=== PATIENT | female | born 1970 | race Caucasian/White ===

== ENCOUNTER 2018-03-11 10:26 | Emergency (ER) | payer BC ==
[2018-03-11 10:39] VITALS: RESP 18
[2018-03-11] MEDS ORDERED: diphenhydrAMINE 50 MG/ML 1 ML VIAL IVP STA (10:52)
[2018-03-11] MEDS ORDERED: METOCLOPRAMIDE 5 MG/ML 2 ML VIAL IVP STA (10:52)
[2018-03-11] MEDS ORDERED: SODIUM CHLORIDE 0.9% 1,000 ML IV STA (10:52)
[2018-03-11] MEDS ORDERED: ORPHENADRINE 30 MG/ML 2 ML VIAL IVP STA (10:53)
--- NOTE | 2018-03-11 10:57 | ED ---
Headache HPI - General Chief Complaint: Headache Stated Complaint: Migraine Time Seen by Provider: 03/11/18 10:46 Source: patient, RN notes reviewed Mode of arrival: wheelchair Limitations: no limitations - History of Present Illness Initial Comments: 47-year-old female presented emergency Department chief complaint of leg. She states she's had a constant headache for last 8 days and that she's been exhibiting symptoms of dizziness feeling lightheaded numbness and tingling on the left side. She states that she had all the symptoms when she saw her neurologist last week and she had an MRI, MRA ordered but states that she has not had it completed at this time. Patient states that the headache is getting worse and unalleviated with the nortriptyline that she was started on. Patient states that her neurologist told her she probably has an aneurysm though she has had no imaging that supported this. Patient states she's not had any recent CT. Denies any fall, head trauma. She states the headache is more diffuse in nature she does have nausea vomiting to photosensitivity. She's also had some blurred vision in which she had the symptoms when seen her neurologist. Patient reports no chest pain or shortness breath no fever or chills. - Related Data Home Medications Medication Instructions Recorded Confirmed Aspirin/Acetaminophen/Caffeine 3 tab PO ONCE PRN 03/11/18 03/11/18 [Excedrin Migraine Caplet] Estradiol [Estradiol 0.1 MG Patch] 1 patch TRANSDERM PLUMMER 03/11/18 03/11/18 HYDROcodone/APAP 7.5-325MG [Frazer 1 tab PO Q6H PRN 03/11/18 03/11/18 7.5-325] Nortriptyline [Pamelor] 20 mg PO HS 03/11/18 03/11/18 buPROPion HCL [Wellbutrin XL] 300 mg PO DAILY 03/11/18 03/11/18 Allergies Allergy/AdvReac Type Severity Reaction Status Date / Time morphine Allergy Rash/Hives Verified 03/11/18 11:24 Review of Systems ROS Statement: Those systems with pertinent positive or pertinent negative responses have been documented in the HPI. ROS Other: All systems not noted in ROS Statement are negative. Past Medical History Additional Past Medical History / Comment(s): Migraines History of Any Multi-Drug Resistant Organisms: None Reported Past Surgical History: No Surgical Hx Reported Past Psychological History: No Psychological Hx Reported Smoking Status: Never smoker Past Alcohol Use History: None Reported Past Drug Use History: None Reported General Exam Limitations: no limitations General appearance: alert, in no apparent distress Head exam: Present: atraumatic, normocephalic, normal inspection Eye exam: Present: normal appearance, PERRL, EOMI. Absent: scleral icterus, conjunctival injection, periorbital swelling ENT exam: Present: normal exam, normal oropharynx, mucous membranes moist, TM's normal bilaterally, normal external ear exam Neck exam: Present: normal inspection, full ROM. Absent: tenderness, meningismus, lymphadenopathy Respiratory exam: Present: normal lung sounds bilaterally. Absent: respiratory distress, wheezes, rales, rhonchi, stridor Cardiovascular Exam: Present: regular rate, normal rhythm, normal heart sounds. Absent: systolic murmur, diastolic murmur, rubs, gallop, clicks Neurological exam: Present: alert, oriented X3, CN II-XII intact, reflexes normal, other (Finger to nose intact bilaterally). Absent: motor sensory deficit Skin exam: Present: warm, dry, intact, normal color. Absent: rash Course Vital Signs 03/11/18 10:38 Temperature 98.2 F Pulse Rate 89 Respiratory 18 Rate Blood Pressure 132/80 O2 Sat by Pulse 99 Oximetry Medical Decision Making - Medical Decision Making 47-year-old female presented Department with chief complaint of headache. Patient is concerned that she had an aneurysm because her neurologist told her that she most likely does based on her symptoms. Patient CT and CTA which was negative for acute abnormality. Patient states she does feel improved after IV medications she will be discharged at this time with follow-up with neurologist return parameters were discussed. Neuro exam was normal. Disposition Clinical Impression: Migraine Disposition: HOME SELF-CARE Condition: Stable Instructions: Acute Headache (ED) Additional Instructions: Please return to the Emergency Department if symptoms worsen or any other concerns. Is patient prescribed a controlled substance at d/c from ED?: No Referrals: Collin Mcneill MD [Primary Care Provider] - 1-2 days Time of Disposition: 12:37
--- NOTE | 2018-03-11 11:26 | CT ---
EXAMINATION TYPE: CT brain wo con DATE OF EXAM: 03/11/2018 COMPARISON: None HISTORY: Migraine CURIEL CT DLP: 945.[address] of the brain was performed. The ventricles, basal cisterns and sulci overlying the cerebral convexities demonstrate a normal appe arance. There is no evidence for intracranial hemorrhage or sulcal effacement. No mass effects are seen. Osseous calvarium is intact. If symptoms persist consider MRI as clinically warranted. IMPRESSION: 1. No acute intracranial process is seen at this time.
[2018-03-11] MEDS ORDERED: RX INFO: IV CONTRAST WAS GIVEN 1 EACH MISC MISCELLANE PRN (11:44)
[2018-03-11] MEDS ORDERED: KETOROLAC 30 MG/ML 1 ML VIAL IVP STA (11:45)
--- NOTE | 2018-03-11 12:17 | CT ---
EXAMINATION TYPE: CT brain w con DATE OF EXAM: 03/11/2018 COMPARISON: 03/11/18 HISTORY: Migraine CT DLP: 1076 mGycm Automated exposure control for dose reduction was used. CONTRAST: CT scan of the head is performed with IV Contrast, patient injected with 100 mL of Isovue 300. FINDINGS: There is no abnormal enhancing mass or midline shift identified. The ventricles and sulci are within normal limits in size. The globes are intact and the visualized sinuses are clear. IMPRESSION: Negative contrast enhanced head CT exam.
[2018-03-11 13:16] VITALS: BP 120/63; PULSE 92; TEMP 97.7
== END 2018-03-11 13:13 | disposition home or self-care (01) ==
LOC: EC 10:26
DX: G43.909 Migraine, unspecified, not intractable, without status migrainosus (principal); Z79.899 Other long term (current) drug therapy; Z88.5 Allergy status to narcotic agent
CPT/HCPCS: 70450; 70460; 99284; 96374; 96375 ×3; 96361; J1200; J2360; J2765; J1885; Q9967

== ENCOUNTER 2022-06-14 07:40 | Day surgery (SDC) | payer BC ==
[2022-06-12 16:35] VITALS: BMI 38.4
[~2022-06-14 07:40] MED LIST: ALPRAZolam 0.25 MG TAB PO PRN; ALPRAZolam 0.5 MG TAB PO PRN; ASPIRIN 325 MG TAB PO STA; ATORVASTATIN 80 MG TAB PO STA; HEPARIN SODIUM,PORCINE 10,000 UNIT in SODIUM CHLORIDE 0.9% 1,000 ML IRRIGATION PRN; HEPARIN SODIUM,PORCINE 2,500 UNIT in SODIUM CHLORIDE 0.9% 250 ML IRRIGATION PRN; NITROGLYCERIN SL TABS 0.4 MG TAB SUBLINGUAL PRN; SODIUM CHLORIDE 0.9% 1,000 ML in EMPTY BAG 1 BAG IV SCH
[2022-06-14] MEDS ORDERED: SODIUM CHLORIDE 0.9% 1,000 ML IV ONE (07:54)
[2022-06-14 08:21] VITALS: RESP 16; TEMP 98.3
[2022-06-14] MEDS ORDERED: VERAPAMIL 2.5 MG/ML 2 ML AMP ONE (09:28)
[2022-06-14] MEDS ORDERED: IV FLUID CONTINUATION 1,000 ML IV ONE (09:30)
[2022-06-14] MEDS ORDERED: HEPARIN SODIUM 1,000 UN/ML (10ML VL) ONE (09:38)
[2022-06-14] MEDS ORDERED: fentaNYL (PF) 50 MCG/ML 2 ML AMP ONE (09:38)
[2022-06-14] MEDS: BENZOCAINE SPRAY 1 CAN MUCOUS MEM ONE ×2 (09:38→09:43)
[2022-06-14] MEDS: fentaNYL (PF) 50 MCG/ML 2 ML AMP IV ONE ×2 (09:43→09:45)
[2022-06-14] MEDS ORDERED: MIDAZOLAM 2 MG/2 ML VIAL IV ONE ×2 (09:43→09:45)
--- NOTE | 2022-06-14 10:02 | P.PCN ---
Date of Procedure: 06/14/22 Operative Findings: TRANSESOPHAGEAL ECHOCARDIOGRAM HOT PATCHER: AKBAR YORK MD, RPVI INDICATION: Rule out patent foramen ovale SEDATION: Conscious sedation COMPLICATION: None LEVEL OF SEDATION Moderate with sedation length of 12 minutes PROCEDURE DESCRIPTION: After obtaining an informed consent, the patient was brought to transesophageal echocardiogram room. Pulse oximetry and heart monitors were attached to the patient. The patient throat was sprayed using lidocaine. The patient was turned into left lateral position. After that a bite guard was placed. After an appropriate conscious sedation was initiated, the transesophageal echocardiogram was advanced through a bite guard into the mid esophagus. A 2-D echocardiogram images, color Doppler images, continuous wave images, pulse-wave images, of various cardiac structure were performed. After that the transesophageal echocardiogram probe was advanced into the stomach and fixed to obtain transgastric view was. The probe was brought into the mid esophagus. Inter-atrial septum was interrogated using 2D images, color Doppler images, and then contrast study. After that transesophageal echocardiogram was withdrawn out and upon withdrawing the descending thoracic aorta all the way up to the arch was evaluated. FINDING: The left ventricular dimension and systolic function appeared to be within normal limits. Ejection fraction appears to be in the range of 50-55%. The right ventricle appeared to be of normal size and function. The left atrium and right atrium appeared to be within normal limits for dimension. The left atrial appendage appeared to be free from any thrombus. The interatrial septum appeared to be intact. The aortic valve is trileaflet valve without stenosis or regurgitation. Mitral valve seems to be normal with mild MR. Normal tricuspid valve and pulmonic valve seen. No evidence of pericardial effusion CONCLUSION: 1. Intact interatrial septum with no evidence of PFO or ASD. Intact left atrial abdomen 2. Normal left ventricular dimension and systolic function 3. Normal right ventricular dimension and systolic function 4. Normal intracardiac valves 5. No evidence of pericardial effusion
[2022-06-14] MEDS ORDERED: LIDOCAINE 1% INJ 10MG/ML (30 ML VIAL-PF) SQ ONE (10:05)
[2022-06-14] MEDS ORDERED: VERAPAMIL SYRINGE (5 MG/10 ML) INTRAARTER ONE (10:08)
[2022-06-14] MEDS ORDERED: HEPARIN SODIUM 1,000 UN/ML (10ML VL) IV ONE (10:13)
[2022-06-14] MEDS ORDERED: IOPAMIDOL-370 125ML BTL INJ ONE (10:21)
--- NOTE | 2022-06-14 10:27 | P.PCN ---
Date of Procedure: 06/14/22 Operative Findings: CARDIAC CATHETERIZATION PERFORMING PHYSICIAN: Yury Mayorga MD, RPVI PROCEDURE PERFORMED: 1. Selective right and left coronary angiogram 2. Left heart catheterization INDICATION: This is a 52-year-old female patient was experiencing symptoms of chest discomfort which she underwent myocardial perfusion imaging stress test and that revealed moderate area of ischemia. In the light of.heart catheterization wasn't COMPLICATION: None APPROACH: Right radial artery LEVEL OF SEDATION: Moderate with a sedation length of 22 minutes PROCEDURE DESCRIPTION: After obtaining an informed consent, the patient was brought to cardiac earthmoving labourer. Local anesthesia was performed using lidocaine subcutaneously. The right radial artery was cannulated using Seldinger technique, the guidewire passed easily, following that we advanced a 5-Djiboutian sheath dilator assembly, the wire and dilator were removed and sheath was flushed. Following that, 2 mg of verapamil along with 5000 unit heparin were given. Selective right and left coronary angiogram using a 6-Djiboutian JR4 and JL 3.5 catheters. Following that we did left heart catheterization using 6-Djiboutian pigtail catheter. The procedure was completed there was no complication. SELECTIVE CORONARY ANGIOGRAM: The right coronary artery: Large caliber vessel and a dominant vessel. The ostial RCA has mild disease only. The distal RCA are angiographically normal. The RCA distally bifurcates into PDA and PLV branches both appeared to be angiographically normal Left main: Is angiographically normal. Bifurcates into LCx and LAD The left circumflex: Large caliber vessel and nondominant vessel. The LCx is angiographically normal. Gives rise into the first obtuse marginal branch which were as ramus intermedius and appears to be angiographically normal ON to appeared to be also angiographically normal and large caliber vessel The left anterior descending artery: Is a large caliber vessel. Its angiographically normal. Gives rise into the diagonal branch which appeared to be angiographically normal HEMODYNAMICS: And the LVEDP was 16 mmHg with no significant gradient across aortic CONCLUSION: 1. 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 Mildly elevated left-sided filling pressure POSTPROCEDURE MANAGEMENT: Medical treatment and follow-up with the patient
[2022-06-14 13:44] VITALS: BP 119/51; PULSE 72
== END 2022-06-14 14:04 | disposition home or self-care (01) ==
LOC: CATHCVL 07:40
PROVIDERS: ATTEND Internal Medicine Interventional Cardiology
DX: I25.10 Atherosclerotic heart disease of native coronary artery without angina pectoris (principal)
CPT/HCPCS: 93312; 93320; 93325; 93458; C1769; C1894; J2250; J2001; J3010; J1644; Q9967

== ENCOUNTER 2025-02-17 05:56 | Day surgery (SDC) | payer BC ==
[2025-02-16 09:36] VITALS: BMI 38.0
[2025-02-17 06:59] VITALS: TEMP 97.4
[2025-02-17] MEDS: LACTATED RINGERS 1,000 ML IV SCH (06:59)
[2025-02-17] MEDS: IV FLUID CONTINUATION 1,000 ML IV ONE (06:59)
[2025-02-17 07:03] LABS: Glucose,Whole Blood 112 mg/dL (70-110)
[2025-02-17] MEDS ORDERED: PROPOFOL 10 MG/ML 20 ML VIAL IV ONE (07:17)
[2025-02-17] MEDS ORDERED: LIDOCAINE 1% INJ 10MG/ML (20 ML MDV) ONE (07:17)
--- NOTE | 2025-02-17 07:54 | P.PCN ---
Date of Procedure: 02/17/25 Procedure(s) Performed: Brief history: Patient is a pleasant 54-year-old white female scheduled for an elective upper endoscopy as well as colonoscopy as a part of evaluation of iron deficiency anemia for the last 2 years duration. She denies any GI symptoms. Procedure performed: Esophagogastroduodenoscopy with biopsy Colonoscopy Preoperative diagnosis: Iron deficiency anemia Anesthesia: [facility] [place] Procedure: After informed consent was obtained from the patient was brought into the endoscopy unit and IV sedation was administered by anesthesia under continuous monitoring. Initially upper endoscopy was done. The Olympus GF 160 video endoscope was inserted inserted into the mouth and esophagus intubated without any difficulty and was gradually advanced into the stomach and duodenum and carefully examined. The bulb and second part of the duodenum had decreased duodenal folds with atrophic appearing mucosa and scalloping of the mucosa suspicious for celiac disease and multiple biopsies were done from this area. The scope was then withdrawn into the stomach adequately insufflated with air and upon careful examination the antrum and mild gastritis and biopsies were done from this area. Mucosa of the d body, cardia and fundus appeared normal. The scope was then withdrawn into the esophagus. No hernia noted. The GE junction was located at 40 cm to the incisors. It appeared regular with no erythema erosions or ulcerations. Rest of the esophagus appeared normal. Patient tolerated the procedure well. At this time the patient continued to remain sedation. Initial digital rectal examination was normal. Olympus CF 160 video colonoscope was then inserted into the rectum and gradually advanced to the cecum without any difficulty. Careful examination was performed as the scope was gradually being withdrawn. The prep was excellent. The cecum, ascending colon, transverse colon, descending colon, sigmoid colon and rectum appeared normal. Retroflexion was performed in the rectum and no lesions were noted. Patient tolerated the procedure well. Impression: 1. Upper endoscopy revealed decreased duodenal folds with atrophic appearing mucosa in the duodenum suspicious for celiac disease status post multiple biopsies, small hiatal hernia and mild antral gastritis 2. Colonoscopy was within normal limits with no evidence of colorectal neoplasia Recommendations: Findings of this examination were discussed with the patient as well as her family. She was advised to follow-up with the biopsy results. Will obtain celiac panel today. She will be seen in the office in 2 weeks. Recommended repeat screening colonoscopy in 10 years.
[2025-02-17 08:13] VITALS: RESP 16
[2025-02-17 08:30] VITALS: BP 123/65; PULSE 76
[2025-02-17 19:25] LABS: Gliadin AB IgA, Deaminated Positive (Negative); Gliadin AB IgA, Unit 43.3 U/mL; Gliadin AB IgG, Deaminated Positive (Negative); Gliadin AB IgG, Unit >250.0 U/mL
== END 2025-02-17 08:38 ==
LOC: ORWHC2ENDO 05:56
PROVIDERS: ATTEND Internal Medicine Gastroenterology
DX: K29.50 Unspecified chronic gastritis without bleeding (principal); K44.9 Diaphragmatic hernia without obstruction or gangrene; D50.9 Iron deficiency anemia, unspecified; D72.820 Lymphocytosis (symptomatic); R73.03 Prediabetes; G47.33 Obstructive sleep apnea (adult) (pediatric); G43.909 Migraine, unspecified, not intractable, without status migrainosus; M54.2 Cervicalgia; Z90.89 Acquired absence of other organs; Z86.79 Personal history of other diseases of the circulatory system; Z88.5 Allergy status to narcotic agent; Z79.02 Long term (current) use of antithrombotics/antiplatelets; Z79.82 Long term (current) use of aspirin; Z79.899 Other long term (current) drug therapy
CPT/HCPCS: 88305; 83516 ×4; 45378; 43239; J2003; J2704